=== PATIENT | female | born 1970 | race Caucasian/White ===

== ENCOUNTER 2020-09-27 11:06 | Emergency (ER) | payer SELFPAY | END 2020-09-27 12:35 | disposition home or self-care (01) | LOC: FER 11:06 | DX: S09.90XA Unspecified injury of head, initial encounter (principal); S00.03XA Contusion of scalp, initial encounter; W20.8XXA Other cause of strike by thrown, projected or falling object, initial encounter | CPT/HCPCS: 99283 ==

== ENCOUNTER 2021-01-14 10:19 | Emergency (ER) | payer OTHER ==
[2021-01-14 13:08] LABS: BASOPHIL 0.5 % (0-2); EOSINOPHIL 2.2 % (0-5); HCT 42.1 % (37.0-47.0); HGB 13.4 g/dl (12.5-16.0); LYMPHOCYTE 19.4 % (15-48); MCH 28.1 pg (25.0-31.0); MCHC 31.8 g/dL (32.0-36.0); MCV 88.3 fL (78.0-100.0); MONOCYTE 6.9 % (0-12); MPV 10.1 fL (6.0-9.5); NEUTROPHIL 70.8 % (41-80); NRBC 0; PLT 253 K/uL (150-400); RBC 4.77 M/uL (4.20-5.40); RDW 14.6 % (11.5-14.0); WBC 9.2 K/uL (4.0-10.5)
[2021-01-14 13:19] LABS: BUN/CREAT RATIO (CALC) 14.7 RATIO; CREATININE 0.68 mg/dL (0.51-0.95); POTASSIUM 3.6 mmol/L (3.5-5.1)
[2021-01-14 14:29] LABS: CORONAVIRUS 2019 SARS-COV-2 NEGATIVE (NEGATIVE); INFLUENZA A NAA NEGATIVE (NEGATIVE)
[2021-01-14] MEDS ORDERED: TESSALON PERLE100 MG PO (14:39)
== END 2021-01-14 15:06 | disposition home or self-care (01) ==
LOC: FER 10:19
PROVIDERS: Nurse Practitioner Family
DX: B34.9 Viral infection, unspecified (principal); I10 Essential (primary) hypertension; J45.909 Unspecified asthma, uncomplicated; F17.210 Nicotine dependence, cigarettes, uncomplicated; Z20.822 Contact with and (suspected) exposure to COVID-19
CPT/HCPCS: 36415; 71046; 80048; 85025; U0002

== ENCOUNTER 2021-03-06 12:21 | Emergency (ER) | payer OTHER ==
[~2021-03-06 12:21] MED LIST: TESSALON PERLE100 MG PO
[2021-03-06 12:59] LABS: BASOPHIL 0.7 % (0-2); EOSINOPHIL 2.1 % (0-5); HCT 40.2 % (37.0-47.0); HGB 12.6 g/dl (12.5-16.0); LYMPHOCYTE 21.4 % (15-48); MCH 28.2 pg (25.0-31.0); MCHC 31.3 g/dL (32.0-36.0); MCV 89.9 fL (78.0-100.0); MONOCYTE 5.6 % (0-12); MPV 9.9 fL (6.0-9.5); NEUTROPHIL 69.8 % (41-80); NRBC 0; PLT 268 K/uL (150-400); RBC 4.47 M/uL (4.20-5.40); RDW 13.8 % (11.5-14.0); WBC 8.6 K/uL (4.0-10.5)
[2021-03-06 13:12] LABS: BILIRUBIN NEGATIVE (NEGATIVE); BLOOD TRACE-INTACT Ery/uL (NEGATIVE); CLARITY CLEAR (CLEAR); COLOR YELLOW (YELLOW); GLUCOSE (U) NORMAL (NORMAL); LEUKOCYTES NEGATIVE Leu/uL (NEGATIVE); NITRITE NEGATIVE (NEGATIVE); PROTEIN NEGATIVE (NEGATIVE); SPECIFIC GRAVITY 1.025 (1.001-1.030); UROBILINOGEN 0.2 mg/dL (0.2-1.0)
[2021-03-06 13:24] LABS: SQUAMOUS EPITHELIAL CELLS 20-50
[2021-03-06 13:28] LABS: BUN/CREAT RATIO (CALC) 20.5 RATIO; CREATININE 0.78 mg/dL (0.51-0.95); POTASSIUM 3.8 mmol/L (3.5-5.1)
[2021-03-06] MEDS ORDERED: NAPROXEN500 MG PO (14:49)
[2021-03-06] MEDS ORDERED: BACLOFEN 10MG T10 MG PO (14:49)
== END 2021-03-06 15:09 | disposition home or self-care (01) ==
LOC: FER 12:21
PROVIDERS: Nurse Practitioner Family
DX: R10.31 Right lower quadrant pain (principal); R10.32 Left lower quadrant pain; I10 Essential (primary) hypertension; F17.210 Nicotine dependence, cigarettes, uncomplicated; Z79.899 Other long term (current) drug therapy
CPT/HCPCS: 36415; 80048; 81001; 85025; J7030; Q9967